=== PATIENT | male | born 1985 | race Caucasian/White ===

== ENCOUNTER 2022-09-12 19:46 | Emergency (ER) | payer BC ==
--- OUTSIDE RECORDS SUMMARY | 2022-09-12 19:51 | XMS REPORT | Continuity of Care Document ---
:1985 Author Organization [facility] t Address [address]. [id number] Care Team Providers Name Role Phone LAWRENCE REAGAN Primary Care Physician Unavailable MALORIE WEISS Attending Clinician Unavailable Malorie Bryan Attending Clinician LAWRENCE REAGAN Attending Clinician Unavailable Payers Payer Name Policy Type Policy Number Effective Date Expiration Date [facility] [id number] 2018 00:00:00 OUT OF STATE Problems Condition Condition Condition Status Onset Resolution Last Treating Co mments Source Name Details Category Date Date Treatment Clinician Date No known No known Disease Unive rs active active ity of problems problems [facility] Allergies, Adverse Reactions, Alerts Allergy Allergy Status Severity Reaction(s) Onset Inactive Treating Comm ents Source Name Type Date Date Clinician NO KNOWN Drug Active Univers ALLERGIE Class ity of S [facility] Social History Social Habit Start Date Stop Date Quantity Comments Source Exposure to 2021-10-20 2021-10-30 Not sure [facility] SARS-CoV-2 00:00:00 15:59:00 [facility] (event) [place] Tobacco use and 2021-10-30 2021-10-30 Never used Universit y of exposure 00:00:00 00:00:00 [facility] Alcohol intake 2021-10-30 2021-10-30 Current drinker Unive rsity of 00:00:00 00:00:00 of alcohol [facility] (finding) [place] Sex Ass[birth year] Universit y of 00:00:00 00:00:00 [facility] Smoking Status Start Date Stop Date Source Never smoker [facility] Medications Ordered Filled Start Stop Current Ordering Indication Dosage Frequency Signature Comments Components Source Medication Medication Date Date Medication? Clinician (SIG) Name Name doxycycline Yes 100mg Take 100 U nivers hyclate 100 4-11 mg by ity of mg capsule 00:00: mouth [place] [address] daily. Medical Branch ketoconazol Yes USE 3-4 Uni vers e 2 % 3-27 TIMES ity of shampoo 00:00: WEEKLY. [place] [address] LEAVE ON Medical FOR 5-10 Branch MINUTES BEFORE RINSING. Metronidazo Yes APPLY THIN Univers le 0.75 % 3-19 LAYER TO ity of lotion 00:00: FACE DAILY [address] Vital Signs Vital Name Observation Time Observation Value Comments Source Heart rate 2021-10-30 21:21:00 104 /min [facility] Oxygen saturation 2021-10-30 21:21:00 91 /min Uni versity [facility] in Arterial blood Medical Br anch by Pulse oximetry Systolic blood 2021-10-30 21:10:00 178 mm[facility]Hg[facility] Diastolic blood 2021-10-30 21:10:00 78 mm[Hg[facility] Body height 2021-10-30 21:09:00 190.5 cm [facility] Body weight 2021-10-30 21:09:00 120.294 kg [facility] BMI 2021-10-30 21:09:00 33.15 kg/m2 [facility] Procedures This patient has no known procedures. Encounters Start End Encounter Admission Attending Care Care Encounter Source Date/Time Date/Time Type Type Clinicians Facility Department ID 2021-10-30 2021-10-30 Outpatient R [facility] [id number] Univers 16:00:00 16:29:10 MALORIE fu [facility] 2021-10-30 2021-10-30 Office [facility] [id number] Univers 16:00:00 16:29:10 Visit Malorie Miles [facility] [id number] i [facility] [id number] Rhett as JOHN PAUL?BLEA [id number] Az jennifer [address] MEDICAL OFFICE BUILDING 2021-10-28 2021-10-28 Outpatient R [facility] [id number] Univers 15:00:00 15:00:[address] [facility] Results This patient has no known results.
[2022-09-12 20:47] LABS: Absolute Lymphocytes (CBC) 2.1 K/uL (0.7-4.9); Hematocrit 46.5 % (39.6-49.0); Lymphocytes % 26.1 % (15.3-44.8); MCV 89.2 fL (80-100); RBC Red Blood Cell Count 5.21 M/uL (4.33-5.43)
[2022-09-12 20:51] LABS: Protime INR 1.08
[2022-09-12] MEDS ORDERED: ASPIRIN 81 MG CHEWABLE TABLET ONE (21:07)
[2022-09-12 21:12] LABS: Bilirubin Direct 0.2 mg/dL (0-0.2); Bilirubin Total 0.6 mg/dL (0.2-1.0); Potassium 3.8 mmol/L (3.5-5.1); Protein, Total 7.6 g/dL (6.4-8.2); Troponin High Sensitivity 11.8 pg/mL (<58.9)
--- NOTE | 2022-09-12 21:18 | RAD REPORT ---
EXAM DESCRIPTION: RAD - Chest Single View - 09/12/2022 8:59 pm CLINICAL HISTORY: CHEST PAIN COMPARISON: No comparisons FINDINGS: Lines: None. Lungs: Hazy opacities throughout the left lung. This could be accentuated by scoliosis in positioning . Pleural: No significant pleural effusions or pneumothorax. Cardiac: The heart size is within normal limits. Mediastinum: Within normal limits. Bones: No acute fractures. Bolden rods with scoliosis. Other: None IMPRESSION: Hazy opacities in left lung could reflect an acute airspace process such as pneumonia bu t it also may be more a function of the patient's scoliosis and rotation.
--- NOTE | 2022-09-12 21:57 | RAD REPORT ---
EXAM DESCRIPTION: CT - Chest For Pe Angio - 09/12/2022 9:48 pm CLINICAL HISTORY: CHEST PAIN COMPARISON: Chest Single View dated 09/12/2022 TECHNIQUE: Dynamically enhanced axial 3 mm thick images of the chest were obtained during administra tion of <100> mL Isovue 370 IV contrast. Coronal and oblique reconstruction images were generated and reviewed. Exam utilizes a protocol for optimal evaluation of pulmonary arterial tree. Maximum intensity projections 3D imaging was utilized All CT scans are performed using dose optimization technique as appropriate and may include automated exposure control or mA/KV adjustment according to patient size. FINDINGS: Chest Wall: No suspicious thyroid nodules or pathologic lymphadenopathy. Lungs: No acute abnormality. Pleura: No significant effusions or pneumothorax. Mediastinum/arnaldo: No pathologic lymphadenopathy. Pulmonary arteries/Aorta: No filling defect identified. No aortic aneurysm. Heart: No significant pericardial effusion. Normal heart size. Upper abdomen: No acute abnormality. Bones: No acute abnormality. Scoliosis with Bolden rods. IMPRESSION: Negative for pulmonary embolism. No acute findings in the chest .
[2022-09-13 01:20] VITALS: TEMP 98.6
[2022-09-13 01:24] VITALS: BP 131/71; O2SAT 99
--- NOTE | 2022-09-14 13:06 | EKG ---
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
--- NOTE | 2022-09-25 16:23 | EDPHYS ---
Physician Documentation [facility] Name: Nicanor Mayes Age: 37 yrs Sex: Male : 1985 Arrival Date: 09/12/2022 Time: 19:59 Bed 9 Private MD: ED Physician David Yanes HPI: 09/12 20:34 This 37 yrs old Male presents to ER via Ambulatory with complaints of Chest pain. snw 20:34 The patient or guardian reports chest pain that is located primarily in the substernal snw area. The pain radiates to the left arm. Associated signs and symptoms: Pertinent positives: palpitations, shortness of breath. The chest pain is described as a heaviness, a pressure, squeezing. Duration: The patient or guardian reports multiple episodes, that wax and wane. Severity of pain: At its worst the pain was moderate severe. The patient has experienced similar episodes in the past, several times, over the past week. The patient has not recently seen a physician. negative family hx. Historical: - Allergies: 20:05 No Known Allergies; vc1 - Home Meds: 20:05 testosterone cypionate 200 mg/mL intramuscular Kit every week [Active]; vc1 - PMHx: 20:05 Sleep apnea; scoliosis; vc1 - PSHx: 20:05 scoliosis sx; vc1 - Immunization history:: Client reports having NOT received the Covid vaccine. - Social history:: Smoking status: Patient denies any tobacco usage or history of. ROS: 20:33 Constitutional: Negative for fever, chills, and weight loss, Eyes: Negative for injury, snw pain, redness, and discharge, ENT: Negative for injury, pain, and discharge, Neck: Negative for injury, pain, and swelling, Respiratory: Negative for shortness of breath, cough, wheezing, and pleuritic chest pain, Abdomen/GI: Negative for abdominal pain, nausea, vomiting, diarrhea, and constipation, Back: Negative for injury and pain, : Negative for injury, bleeding, discharge, and swelling, MS/Extremity: Negative for injury and deformity, Skin: Negative for injury, rash, and discoloration, Neuro: Negative for headache, weakness, numbness, tingling, and seizure, Psych: Negative for depression, anxiety, suicide ideation, homicidal ideation, and hallucinations. 20:33 Cardiovascular: Positive for chest pain, of the left arm and chest. Exam: 20:32 Constitutional: This is a well developed, well nourished patient who is awake, alert, snw and in no acute distress. Head/Face: Normocephalic, atraumatic. Eyes: Pupils equal round and reactive to light, extra-ocular motions intact. Lids and lashes normal. Conjunctiva and sclera are non-icteric and not injected. Cornea within normal limits. Periorbital areas with no swelling, redness, or edema. ENT: Nares patent. No nasal discharge, no septal abnormalities noted. Tympanic membranes are normal and external auditory canals are clear. Oropharynx with no redness, swelling, or masses, exudates, or evidence of obstruction, uvula midline. Mucous membranes moist. Neck: Trachea midline, no thyromegaly or masses palpated, and no cervical lymphadenopathy. Supple, full range of motion without nuchal rigidity, or vertebral point tenderness. No Meningismus. Chest/axilla: Normal chest wall appearance and motion. Nontender with no deformity. No lesions are appreciated. Cardiovascular: Regular rate and rhythm with a normal S1 and S2. No gallops, murmurs, or rubs. Normal PMI, no JVD. No pulse deficits. Respiratory: Lungs have equal breath sounds bilaterally, clear to auscultation and percussion. No rales, rhonchi or wheezes noted. No increased work of breathing, no retractions or nasal flaring. Abdomen/GI: Soft, non-tender, with normal bowel sounds. No distension or tympany. No guarding or rebound. No evidence of tenderness throughout. Back: No spinal tenderness. No costovertebral tenderness. Full range of motion. Skin: Warm, dry with normal turgor. Normal color with no rashes, no lesions, and no evidence of cellulitis. MS/ Extremity: Pulses equal, no cyanosis. Neurovascular intact. Full, normal range of motion. Neuro: Awake and alert, GCS 15, oriented to person, place, time, and situation. Cranial nerves II-XII grossly intact. Motor strength 5/5 in all extremities. Sensory grossly intact. Cerebellar exam normal. Normal gait. 20:32 Psych: Behavior/mood is anxious, Patient has no thoughts/intents to harm self or others. Vital Signs: 20:03 BP 166 / 81; Pulse 83; Resp 18; Temp 98.6; Pulse Ox 97% ; Weight 111.13 kg; Height 6 vc1 ft. 3 in. ; Pain 3/10; 20:49 BP 137 / 79; Pulse 80; Resp 39; Pulse Ox 97% on R/A; as7 21:15 BP 138 / 75; Pulse 79; Resp 20; Pulse Ox 96% ; kb3 23:13 BP 131 / 71; Pulse 75; Resp 18; Pulse Ox 99% ; Pain 0/10; kb3 20:03 Body Mass Index 30.62 (111.13 kg, 190.5 cm) vc1 20:03 Pain Scale: Adult vc1 23:13 Pain Scale: Adult kb3 MDM: 20:16 Patient medically screened. snw 20:32 Differential diagnosis: acute myocardial infarction, anxiety, coronary artery disease snw costochondritis, gastroesophageal reflux disease (GERD), pericarditis, pleurisy. JOSE Risk Score: 1 - Recent [<24hrs] Severe Angina, TOTAL SCORE = 1. Data reviewed: vital signs, nurses notes. I considered the following discharge prescriptions or medication management in the emergency department Medications were administered in the Emergency Department. See MAR. Counseling: I had a detailed discussion with the patient and/or guardian regarding: the historical points, exam findings, and any diagnostic results supporting the discharge/admit diagnosis, the presence of at least one elevated blood pressure reading (>120/80) during this emergency department visit, lab results, radiology results. 09/12 20:16 Order name: Basic Metabolic Panel [facility] 09/12 20:16 Order name: CBC with Diff [facility] 09/12 20:16 Order name: LFT's [facility] 09/12 20:16 Order name: Magnesium [facility] 09/12 20:16 Order name: NT PRO-BNP [facility] 09/12 20:16 Order name: PT-INR [facility] 09/12 20:16 Order name: Troponin HS [facility] 09/12 20:27 Order name: TSH [facility] 09/12 20:48 Order name: CBC with Automated Diff; Complete Time: 20:49 EDMS 09/12 20:51 Order name: Protime (+INR); Complete Time: 21:02 EDMS 09/12 21:13 Order name: Basic Metabolic Panel; Complete Time: 21:14 EDMS 09/12 21:13 Order name: Liver (Hepatic) Function; Complete Time: 21:14 EDPR 09/12 21:13 Order name: Troponin High Sensitivity; Complete Time: 21:14 EDPR 09/12 21:13 Order name: NT PRO-BNP; Complete Time: 21:14 EDPR 09/12 21:13 Order name: Magnesium; Complete Time: 21:14 EDPR 09/12 21:19 Order name: Thyroid Stimulating Hormone; Complete Time: 21:19 EDPR 09/12 20:16 Order name: XRAY Chest (1 view) snw 09/12 21:18 Order name: RAD; Complete Time: 21:19 EDMS 09/12 21:20 Order name: CT Chest For PE Angio; Complete Time: 22:12 snw 09/12 20:16 Order name: EKG; Complete Time: 20:17 snw 09/12 20:16 Order name: Cardiac monitoring; Complete Time: 20:50 snw 09/12 20:16 Order name: EKG - Nurse/Tech; Complete Time: 20:40 snw 09/12 20:16 Order name: IV Saline Lock; Complete Time: 20:40 snw 09/12 20:16 Order name: Labs collected and sent; Complete Time: 20:40 snw 09/12 20:16 Order name: O2 Per Protocol [facility] 09/12 20:16 Order name: O2 Sat Monitoring; Complete Time: 20:50 snw Administered Medications: 21:18 Drug: Aspirin PO Chewable Tablet 324 mg Route: PO; kb3 22:00 Follow up: Response: No adverse reaction kb3 Disposition Summary: 09/12/22 22:54 Discharge Ordered Location: Home snw Condition: Stable snw Diagnosis - Chest pain, unspecified snw Followup: snw - With: Private Physician - When: 2 - 3 days - Reason: Recheck today's complaints, Continuance of care, Re-evaluation by your physician Followup: snw - With: Emergency Department - When: As needed - Reason: Worsening of condition Discharge Instructions: - Discharge Summary Sheet snw - Nonspecific Chest Pain, Adult snw - Hypertension, Adult snw - How to Take Your Blood Pressure, [id number] snw - Aspirin and Your Heart snw - Form - Blood Pressure Record Sheet snw Forms: - Medication Reconciliation Form snw - Thank You Letter snw - Antibiotic Education snw - Prescription Opioid Use snw Signatures: Dispatcher [employer] EDMS Charmaine Uriostegui, ASSURANCE ASSOCIATE-C ASSURANCE ASSOCIATE-Csnw Poonam Herron, RN RN vc1 Devika Segura RN RN kb3
--- NOTE | 2022-09-25 16:23 | ER ---
Nurse's Notes [facility] Name: Nicanor Mayes Age: 37 yrs Sex: Male : 1985 Arrival Date: 09/12/2022 Time: 19:59 Bed 9 Private MD: Diagnosis: Chest pain, unspecified Presentation: 09/12 20:03 Chief complaint: Patient states: "My chest has been hurting for a few weeks tonight I vc1 was working in the yard tonight and it started hurting again.". Coronavirus screen: Vaccine status: Patient reports being unvaccinated. At this time, the client does not indicate any symptoms associated with coronavirus-19. Ebola Screen: Patient negative for fever greater than or equal to 101.5 degrees Fahrenheit, and additional compatible Ebola Virus Disease symptoms Patient denies exposure to infectious person. Patient denies travel to an Ebola-affected area in the 21 days before illness onset. No symptoms or risks identified at this time. Initial Sepsis Screen: Does the patient meet any 2 criteria? No. Patient's initial sepsis screen is negative. Does the patient have a suspected source of infection? No. Patient's initial sepsis screen is negative. Risk Assessment: Do you want to hurt yourself or someone else? Patient reports no desire to harm self or others. Onset of symptoms is unknown. 20:03 Method Of Arrival: Ambulatory vc1 20:03 Acuity: SANTIAGO 3 vc1 Triage Assessment: 20:06 General: Appears in no apparent distress. uncomfortable, Behavior is calm, cooperative, vc1 appropriate for age. Pain: Complains of pain in chest Pain radiates to left arm. EENT: No deficits noted. No signs and/or symptoms were reported regarding the EENT system. Neuro: Level of Consciousness is awake, alert, obeys commands, Oriented to person, place, time, situation, none. Cardiovascular: Chest pain is described as mild, radiates to left arm(s) Parent/caregiver reports patient has had chest pain, palpitations, shortness of breath. Respiratory: Reports shortness of breath Airway is patent Respiratory effort is even, unlabored, Respiratory pattern is regular, symmetrical, the patient has mild shortness of breath. GI: No deficits noted. No signs and/or symptoms were reported involving the gastrointestinal system. : No deficits noted. No signs and/or symptoms were reported regarding the genitourinary system. Derm: No deficits noted. No signs and/or symptoms reported regarding the dermatologic system. Musculoskeletal: No deficits noted. No signs and/or symptoms reported regarding the musculoskeletal system. Historical: - Allergies: 20:05 No Known Allergies; vc1 - Home Meds: 20:05 testosterone cypionate 200 mg/mL intramuscular Kit every week [Active]; vc1 - PMHx: 20:05 Sleep apnea; scoliosis; vc1 - PSHx: 20:05 scoliosis sx; vc1 - Immunization history:: Client reports having NOT received the Covid vaccine. - Social history:: Smoking status: Patient denies any tobacco usage or history of. Screenin:15 [facility] ED Fall Risk Assessment (Adult) History of falling in the last 3 months, kb3 including since admission No falls in past 3 months (0 pts) Confusion or Disorientation No (0 pts) Intoxicated or Sedated No (0 pts) Impaired Gait No (0 pts) Mobility Assist Device Used No (0 pt) Altered Elimination No (0 pt) Score/Fall Risk Level 0 - 2 = Low Risk Oriented to surroundings, Maintained a safe environment, Educated pt \\T\\ family on fall prevention, incl call for assistance when getting out of bed, Assessed \\T\\ reinforced patient's understanding of fall precautions, Provided non-skid footwear, Hourly rounding (assess needs \\T\\ fall precautionary measures) done, Used ambulatory aids as needed (educated on \\T\\ assisted with). Abuse screen: Denies threats or abuse. Denies injuries from another. Nutritional screening: No deficits noted. Tuberculosis screening: No symptoms or risk factors identified. Assessment: 20:30 General: Appears in no apparent distress. comfortable, Behavior is calm, cooperative, kb3 Received care of pt from Poonam MARTINEZ. Pt is AAO x4, reports intermittent CP x3 weeks with associated SOB and arm stiffness. Denies N/V/sweating. Reports feeling well at this time.. 20:30 Pain: Denies pain. kb3 Vital Signs: 20:03 BP 166 / 81; Pulse 83; Resp 18; Temp 98.6; Pulse Ox 97% ; Weight 111.13 kg; Height 6 vc1 ft. 3 in. ; Pain 3/10; 20:49 BP 137 / 79; Pulse 80; Resp 39; Pulse Ox 97% on R/A; as7 21:15 BP 138 / 75; Pulse 79; Resp 20; Pulse Ox 96% ; kb3 23:13 BP 131 / 71; Pulse 75; Resp 18; Pulse Ox 99% ; Pain 0/10; kb3 20:03 Body Mass Index 30.62 (111.13 kg, 190.5 cm) vc1 20:03 Pain Scale: Adult vc1 23:13 Pain Scale: Adult kb3 ED Course: 19:59 Patient arrived in ED. vc1 20:05 Triage completed. vc1 20:07 Arm band placed on left wrist. vc1 20:15 Charmaine Uriostegui FNP-C [facility] snw 20:16 David Yanes MD is Attending Physician. snw 20:40 TSH Sent. as7 20:40 Basic Metabolic Panel Sent. as7 20:40 CBC with Diff Sent. as7 20:40 LFT's Sent. as7 20:40 Magnesium Sent. as7 20:40 NT PRO-BNP Sent. as7 20:40 PT-INR Sent. as7 20:40 Troponin HS Sent. as7 20:40 Inserted saline lock: 20 gauge in right antecubital area, using aseptic technique. as7 Blood collected. 21:15 Patient has correct armband on for positive identification. Bed in low position. Call kb3 light in reach. Side rails up X 1. 21:15 No provider procedures requiring assistance completed. kb3 21:50 CT Chest For PE Angio In Process Unspecified. EDMS 23:13 IV discontinued, intact, bleeding controlled, No redness/swelling at site. kb3 Administered Medications: 21:18 Drug: Aspirin PO Chewable Tablet 324 mg Route: PO; kb3 22:00 Follow up: Response: No adverse reaction kb3 Medication: 21:15 VIS not applicable for this client. kb3 Outcome: 22:54 Discharge ordered by . snw 23:13 Discharged to home ambulatory. kb3 23:13 Condition: stable 23:13 Discharge instructions given to patient, Instructed on discharge instructions, follow up and referral plans. medication usage, Demonstrated understanding of instructions, follow-up care, medications, Prescriptions given X 23:15 Patient left the ED. kb3 Signatures: Dispatcher [employer] EDMS Charmaine Uriostegui FNP-C FNP-[place] Poonam Herron, RN RN vc1 Devika Segura, RN RN kb3 Senkyrik, Rebekah as7
== END 2022-09-12 23:15 | disposition home or self-care (01) ==
LOC: ER 19:46
DX: R07.89 Other chest pain (principal); R00.2 Palpitations
CPT/HCPCS: 93005; 85025; 80048; 36415; 83735; 85610; 80076; 84443; 84484; 83880; 71275; 71045; 99284; Q9967